=== PATIENT | female | born 1990 | race Caucasian/White ===

== ENCOUNTER 2019-02-04 15:42 | Emergency (ER) | payer OTHER ==
[2019-02-04 16:22] VITALS: BP 132/71
[2019-02-04] MEDS ORDERED: Ibuprofen TAB* 400 MG PO ONE (17:46)
--- NOTE | 2019-02-04 17:50 | UC ---
Complaint Female HPI - HPI Summary HPI Summary: 28 y/o female presents to the urgent care c/o of RT flank pain and frequency and burning on urination since Thursday01/31/2019. Pt reports pain is 7/10 w/o any radiation. She has been drinking fluids and took Motrin PO last night to alleviate symptoms. Pt also reports a red rash in her left thigh s/p insect bite that is increasing in size and look mildly infected for the past 3 days. LMP: 01/24/2019 w/ regular menstrual cycles. Pt denies Hx of kidney stones or Hx of UTI. Pt denies fever, abdominal pain, N/V/D, vaginal discharge, SOB, chest pain, Hx of STD's. - History Of Current Complaint Chief Complaint: UCGU Stated Complaint: POSS BLADDER INFECTION Time Seen by Provider: 02/04/19 17:31 Hx Obtained From: Patient Hx Last Menstrual Period: 01/28/19 ?: No - On OCP Onset/Duration: Gradual Onset, Lasting Days - 5 days, Still Present, Worse Since - today Timing: Intermittent, Lasting Seconds Severity Initially: Mild Severity Currently: Moderate Pain Intensity: 7 - RT flank pain Pain Scale Used: 0-10 Numeric Character: Burning Aggravating Factor(s): Urination Alleviating Factor(s): Meds - Ibuprofen PO last night Associated Signs And Symptoms: Positive: Back Pain - RT flank pain. Negative: Fever, Vaginal Bleeding/Discharge, Vaginal Discharge, Nausea, Vomiting(# Of Episodes =), Genital Swelling, Genital Blisters - Risk Factors Ectopic Risk Factor: Negative Ovarian Torsion Risk Factor: Negative - Allergies/Home Medications Allergies/Adverse Reactions: Allergies Allergy/AdvReac Type Severity Reaction Status Date / Time No Known Allergies Allergy Verified 02/04/19 16:22 Home Medications: Home Medications Methylphenidate HCl [Concerta] 36 mg PO 02/04/19 [History] PMH/Surg Hx/FS Hx/Imm Hx Previously Healthy: Yes Respiratory History: Asthma - Surgical History Surgical History: None - Family History Known Family History: Positive: Diabetes - Social History Occupation: Employed Full-time Lives: With Family Alcohol Use: Rare Substance Use Type: None Smoking Status (MU): Never Smoked Tobacco Review of Systems All Other Systems Reviewed And Are Negative: Yes Constitutional: Positive: Negative Skin: Positive: Rash - infected insect bite rash on the left thigh for the past 3 days Eyes: Positive: Negative ENT: Positive: Negative Respiratory: Positive: Negative Cardiovascular: Positive: Negative Gastrointestinal: Positive: Negative Genitourinary: Positive: Dysuria, Frequency, Urgency, Other - Rt flank pain. Negative: Vaginal/Penile Burning, Vaginal/Penile Itching, Vaginal/Penile Discharge, Vaginal/Penile Tenderness, Ulceration/Lesion, Abnormal Bleeding Motor: Positive: Negative Neurovascular: Positive: Negative Musculoskeletal: Positive: Negative Neurological: Positive: Negative Psychological: Positive: Negative Is Patient Immunocompromised?: No Physical Exam - Summary Physical Exam Summary: VITAL SIGNS: Reviewed. GENERAL: Patient is a well developed and nourished female who is sitting comfortable in the examining table. Patient is not in any acute respiratory distress. HEAD AND FACE: No signs of trauma. No ecchymosis, hematomas or skull depressions. No sinus tenderness. EYES: PERRLA, EOMI x 2, No injected conjunctiva, clear watery eyes, no nystagmus. No photophobia. EARS: Hearing grossly intact. Ear canals and tympanic membranes are within normal limits. MOUTH: pharynx with no erythema, no exudates,no palatal petechiae. no B/L tonsillar enlargement Uvula in midline. NECK: Supple, trachea is midline, no lymphadenopathy, no JVD, no carotid bruit, no c-spine tenderness, neck with full ROM. CHEST: Symmetric, no tenderness at palpation LUNGS: Clear to auscultation bilaterally. No wheezing or crackles. CVS: Regular rate and rhythm, S1 and S2 present, no murmurs or gallops appreciated. ABDOMEN: Soft, non-tender. No signs of distention. No rebound no guarding, and no masses palpated. Bowel sounds are normal. BACK:no scoliosis or lesions, non tender to palpation, RT CVA tenderness, No LF CVA tenderness on percussion. EXTREMITIES: FROM in all major joints, no edema, no cyanosis or clubbing. NEURO: Alert and oriented x 3. No acute neurological deficits. Speech is normal and follows commands. SKIN: Dry and warm. Positive: Positive erythematous patch in the posterior thigh w/ indistinct borders, warm and tender to palpation, no drainage observed. pulses WNL, capillary refill brisk, sensation WNL. Triage Information Reviewed: Yes Vital Signs: Initial Vital Signs Temp 99.7 F 02/04/19 16:18 Pulse 105 02/04/19 16:18 Resp 18 02/04/19 16:18 BP 132/71 02/04/19 16:18 Pulse Ox 97 02/04/19 16:18 Complaint Female Dx - Course Course Of Treatment: 28 y/o female presents to the urgent care c/o of RT flank pain and frequency and burning on urination since Thursday01/31/2019. Pt reports pain is 7/10 w/o any radiation. She has been drinking fluids and took Motrin PO last night to alleviate symptoms. Pt also reports a red rash in her left thigh s/p insect bite that is increasing in size and look mildly infected for the past 3 days. LMP: 01/24/2019 w/ regular menstrual cycles. Pt denies Hx of kidney stones or Hx of UTI. Pt denies fever, abdominal pain, N/V/D, vaginal discharge, SOB, chest pain, Hx of STD's. Hx obtained. Pt w/ cellulitis on the posterior left thigh s/ p insect bite and RT CVA tenderness on percussion on examination. Pt is hemodynamically stable, A&OX3. UA results: Blood trace. Abdominal/pelvic CT ordered to r/o kidney stone, Impression: No renal, ureteral or bladder calculi observed, negative CT. Urine sent for culture to lab as per Pt's request. Pt will be notified of any abnormality. Pt Rx Keflex PO and Bacitracin topical cream as directed below for cellulitis and Pyridium PO to alleviate Dysuria. Advised to increase fluid intake. Pt advised If symptoms do not improve to return to the urgent care or f/u with PCP or Urologist Dr Gillis. D/C instructions explained. Pt understood and agreed. Left the clinic ambulating. - Differential Dx/Diagnosis Differential Diagnosis/HQI/PQRI: Appendicitis, Cervicitis, Renal Colic, Ureteral Stone, Urinary Tract Infection, Other - celulitis Provider Diagnosis: Dysuria, Acute flank pain, Cellulitis of left thigh, Hematuria Discharge ED - Sign-Out/Discharge Documenting (check all that apply): Patient Departure - D/c home All imaging exams completed and their final reports reviewed: Yes - Discharge Plan Condition: Stable Disposition: HOME Prescriptions: Bacitracin OINTMENT* 1 applic TOPICAL BID #1 tube Cephalexin CAP* [Keflex CAP*] 500 mg PO TID #21 cap Phenazopyridine TAB* [Pyridium 100 mg TAB*] 100 mg PO TID #6 tab Patient Education Materials: Cellulitis (ED), Hematuria (ED), Dysuria (ED) Referrals: [facility] [[facility]] - 3 Days Steven Espinosa MD [Medical Doctor] - 1 Week Additional Instructions: 1- Please take Pyridium 100 mg PO TID x 2 days to alleviate urinary symptoms. Increase increase fluid intake. drink cranberry juice. 2-Urine sent for culture if any abnormality, you will be notified for further treatment. 3- Please take Keflex PO as directed to alleviate celullitis. If redness and swelling doubles in size beyond what was demarcated after 48 hrs of taking antibiotic and fever develops please go to the ER immediately. 4-keep insect bite clean and dry. Apply Bacitrain oint as directed 4-Please F/u with your PCP or Urologist in 3 days if not improvement or symptoms and management on your hematuira for further evaluation and treatment. - Billing Disposition and Condition Condition: STABLE Disposition: Home - Attestation Statements Provider Attestation: Per institutional requirements, I have reviewed the chart, however, I was not consulted specifically or made aware of this patient by the midlevel provider. I did not personally evaluate, interact with , or disposition this patient.
== END 2019-02-04 19:09 | disposition home or self-care (01) ==
LOC: UCEAST 15:42
DX: R10.9 Unspecified abdominal pain (principal); R30.0 Dysuria; R31.9 Hematuria, unspecified; L03.116 Cellulitis of left lower limb
CPT/HCPCS: 74176; 81003; 87086; 99202; A9270-GY; G0463